=== PATIENT | male | born 1945 | race Caucasian/White ===

== ENCOUNTER 2021-04-19 17:00 | Emergency (ER) | payer OTHER, MEDICARE ==
[2021-04-19 17:20] VITALS: BP_SYST 109
--- NOTE | 2021-04-19 17:27 | NUR ---
PT TO BED 2 FOR EVALUATION.
--- NOTE | 2021-04-19 17:30 | NUR ---
PT AAO AND WAS BIB FOR EXCESSIVE DIARRHEA AND MULTIPLE EPISODES OF VOMITING. PT REPORTS NAUSEA BUT NO PAIN CURRENTLY. PT HAS HISTORY OF CANCER AND IS CURRENTLY ON TRIAL MEDICATION. PT REPORTS 15 EPISODES OF DIARRHEA SINCE THURSDAY AND VOMITED MULTIPLE TIMES TODAY. V/S STABLE.
--- NOTE | 2021-04-19 17:35 | NUR ---
# 22 gauge angiocath placed to R FA. Use of asceptic technique. Opsite placed over site. Blood return noted. Blood for lab drawn from site. Flushed with 10 cc of normal saline. No evidence of infiltration noted. Patient tolerated well.
[2021-04-19] MEDS: NACL 0.9% 1,000 ML IV ONE (17:43)
[2021-04-19] MEDS: ONDANSETRON HCL 4 MG/2 ML VIAL IVP ONE (17:44)
[2021-04-19 17:51] LABS: HEMATOCRIT 41.8 % (36-54); HEMOGLOBIN 13.6 g/dL (14.0-18.0); MEAN CORPUSCULAR HEMOGLOBIN 30 pg (27-31); MEAN CORPUSCULAR HGB CONC 33 % (32-36); MEAN CORPUSCULAR VOLUME 92 fL (79.0-98.0); PLATELET COUNT (AUTO) 209 K/uL (130-430); RED BLOOD CELL COUNT(AUTO) 4.53 MIL/uL (4.2-6.2)
[2021-04-19 17:57] LABS: ANION GAP 15 (5-15); CALCIUM 8.4 mg/dL (8.4-11.0); CHLORIDE 105 mmol/L (98-107); CREATININE 1.22 mg/dL (0.55-1.30); GLUCOSE 124 mg/dL (70-99); POTASSIUM 3.8 mmol/L (3.5-5.1); SODIUM SERUM 139 mmol/L (136-145); UREA NITROGEN, BLOOD 17 mg/dL (8-21)
[2021-04-19 18:03] LABS: ALANINE AMINOTRANSFERASE 23 U/L (12-78); ALBUMIN 3.6 g/dL (3.4-4.8); ASPARTATE AMINOTRANSFERASE 13 U/L (10-37); LIPASE 28 U/L (73-393); TOTAL BILIRUBIN 0.8 mg/dL (0.0-1.0)
[2021-04-19 18:12] LABS: WHITE BLOOD COUNT (AUTO) 54.6 K/uL (4.8-10.8)
[2021-04-19 18:15] LABS: ATYPICAL LYMPHOCYTES % 6 % (0-0); BAND % (MANUAL) 3 % (0-6); BASOPHILS % (MANUAL) 0 % (0-2); EOSINOPHILS % (MANUAL) 2 % (0-7); LYMPHOCYTES % (MANUAL) 79 % (20-46); MONOCYTES % (MANUAL) 1 % (0-11)
--- NOTE | 2021-04-19 18:45 | NUR ---
DR. FOURNIER AT BEDSIDE TO ASSESS.
[2021-04-19] MEDS ORDERED: ONDA4TAB5 PO (18:53)
[2021-04-19 19:18] VITALS: BP_SYST 126
--- NOTE | 2021-04-19 19:19 | NUR ---
Patient given written and verbal discharge instructions and verbalizes understanding. DR. IRLANDA QUINTANA MD discussed with patient the results and treatment provided. Patient in stable condition. ID arm band removed. IV catheter removed intact and dressing applied, no active bleeding. Patient educated on pain management and to follow up with PMD. Pain Scale 0/10. Opportunity for questions provided and answered.
== END 2021-04-19 19:19 | disposition home or self-care (01) ==
LOC: SED 17:00
DX: R11.2 Nausea with vomiting, unspecified (principal); R19.7 Diarrhea, unspecified; Z79.899 Other long term (current) drug therapy
CPT/HCPCS: 36415; 80053; 83690; 85007; 85027; 96361; 96374; 99283; J2405; J7030; 99284